=== PATIENT | male | born 1955 | race Caucasian/White ===

== ENCOUNTER → 2016-07-26 | Outpatient (CLI) | payer OTHER | END | disposition home or self-care (01) | LOC: CFH 07:02 | PROVIDERS: ATTEND Physician Assistant | DX: Z13.89 Encounter for screening for other disorder (principal); K74.60 Unspecified cirrhosis of liver | CPT/HCPCS: 76705 ==

== ENCOUNTER → 2017-01-31 | Outpatient (CLI) | payer OTHER | END | disposition home or self-care (01) | LOC: CFH 08:13 | PROVIDERS: ATTEND Physician Assistant | DX: K74.60 Unspecified cirrhosis of liver (principal) | CPT/HCPCS: 76705 ==

== ENCOUNTER → 2017-08-11 | Outpatient (CLI) | payer OTHER | LOC: CFH 06:38 | PROVIDERS: ATTEND Physician Assistant | DX: K74.60 Unspecified cirrhosis of liver (principal); R16.1 Splenomegaly, not elsewhere classified | CPT/HCPCS: 76705 ==

== ENCOUNTER → 2018-02-21 | Outpatient (CLI) | payer OTHER | END | disposition home or self-care (01) | LOC: CFH 06:56 | PROVIDERS: ATTEND Physician Assistant | DX: K74.60 Unspecified cirrhosis of liver (principal) | CPT/HCPCS: 76705 ==

== ENCOUNTER 2019-07-20 10:28 | Outpatient (CLI) | payer MEDICARE, OTHER ==
[2019-09-10] MEDS ORDERED: AMLO-150 PO (11:50)
[2019-09-10] MEDS ORDERED: LISI-167 PO (11:50)
[2019-09-10] MEDS ORDERED: FLUT9.9S NS (11:50)
[2019-09-10] MEDS ORDERED: LORA-247 PO (11:50)
[2019-09-10] MEDS ORDERED: APIX2.5T PO (11:50)
[2019-09-10] MEDS ORDERED: METO25TA2 PO (11:50)
[2019-09-10] MEDS ORDERED: MULT-658 PO (11:50)
== END 2019-07-20 23:59 | disposition home or self-care (01) ==
LOC: CVU 10:28
PROVIDERS: ATTEND Family Medicine
DX: I08.3 Combined rheumatic disorders of mitral, aortic and tricuspid valves (principal); I48.91 Unspecified atrial fibrillation; R94.31 Abnormal electrocardiogram [ECG] [EKG]
CPT/HCPCS: 93306

== ENCOUNTER 2019-09-13 09:54 | Day surgery (SDC) | payer MEDICARE, OTHER ==
[2019-09-10 11:40] VITALS: BP 120/71
[2019-09-10 12:16] LABS: BASOPHILS # (AUTO) 0.04 x10^3/uL (0-0.1); BASOPHILS % (AUTO) 1 % (0-1); EOSINOPHILS # (AUTO) 0.12 x10^3/uL (0-0.4); EOSINOPHILS % (AUTO) 2 % (1-7); LYMPHOCYTES # (AUTO) 1.83 x10^3/uL (1-3.4); LYMPHOCYTES % (AUTO) 22 % (22-44); MD NO; MEAN CORPUSCULAR HGB CONC 33.4 g/dL (33.2-36.2); MEAN CORPUSCULAR VOLUME 89.8 fL (81-97); MEAN PLATELET VOLUME 9.2 fL (7.4-10.4); MONOCYTES # (AUTO) 0.47 x10^3/uL (0.2-0.8); MONOCYTES % (AUTO) 6 % (2-9); NEUTROPHILS # (AUTO) 5.74 x10^3/uL (1.8-6.8); NEUTROPHILS % (AUTO) 70 % (42-75); PLATELET COUNT 185 x10^3/uL (130-400); RED BLOOD COUNT 5.23 x10^6/uL (4.38-5.82); RED CELL DISTRIBUTION WIDTH 13.6 % (9.4-14.8)
[2019-09-10 12:24] LABS: ANION GAP 3 mmol/L (5-15); CALCIUM 8.6 mg/dL (8.5-10.1); CHLORIDE 110 mmol/L (98-107); CREATININE 1.13 mg/dL (0.7-1.3)
[~2019-09-13] VITALS: Ht 180.3 cm; Wt 113.1 kg
[~2019-09-13 09:54] MED LIST: AMLO-150 PO; APIX2.5T PO; FLUT9.9S NS; LISI-167 PO; LORA-247 PO; METO25TA2 PO; MULT-658 PO
[2019-09-13] MEDS ORDERED: PROPOFOL 10 MG/ML, 20ML ONE (12:20)
== END 2019-09-13 13:30 | disposition home or self-care (01) ==
LOC: CACL 09:54
PROVIDERS: ATTEND Internal Medicine Cardiovascular Disease
DX: I48.91 Unspecified atrial fibrillation (principal); I48.92 Unspecified atrial flutter; I10 Essential (primary) hypertension; I42.8 Other cardiomyopathies; E66.2 Morbid (severe) obesity with alveolar hypoventilation; F12.10 Cannabis abuse, uncomplicated; Z68.1 Body mass index [BMI] 19.9 or less, adult; Z79.01 Long term (current) use of anticoagulants; Z79.899 Other long term (current) drug therapy; Z87.891 Personal history of nicotine dependence
CPT/HCPCS: 36415; 80048; 85025; 92960; 93005; U0001; J2704

== ENCOUNTER → 2019-10-19 | Outpatient (CLI) | payer MEDICARE, OTHER ==
[~2019-10-19] MED LIST changes: +OMNIPAQUE 350 MG/ML, 150 ML BOTTLE ONE
== END | disposition home or self-care (01) ==
LOC: CFH 13:42
PROVIDERS: ATTEND Internal Medicine Cardiovascular Disease
DX: I48.91 Unspecified atrial fibrillation (principal); J90 Pleural effusion, not elsewhere classified
CPT/HCPCS: 75572; 82565; Q9967

== ENCOUNTER 2019-10-22 13:45 | Outpatient (CLI) | payer MEDICARE, OTHER ==
[~2019-10-22 13:45] MED LIST changes: -OMNIPAQUE 350 MG/ML, 150 ML BOTTLE ONE
[2019-10-22 14:52] LABS: BASOPHILS # (AUTO) 0.15 x10^3/uL (0-0.1); BASOPHILS % (AUTO) 2 % (0-1); EOSINOPHILS # (AUTO) 0.07 x10^3/uL (0-0.4); EOSINOPHILS % (AUTO) 1 % (1-7); LYMPHOCYTES # (AUTO) 1.47 x10^3/uL (1-3.4); LYMPHOCYTES % (AUTO) 16 % (22-44); MD NO; MEAN CORPUSCULAR HEMOGLOBIN 29.8 pg (27.5-34.5); MEAN CORPUSCULAR HGB CONC 32.7 g/dL (33.2-36.2); MEAN CORPUSCULAR VOLUME 91.3 fL (81-97); MEAN PLATELET VOLUME 10.8 fL (7.4-10.4); MONOCYTES # (AUTO) 0.65 x10^3/uL (0.2-0.8); MONOCYTES % (AUTO) 7 % (2-9); NEUTROPHILS # (AUTO) 7.01 x10^3/uL (1.8-6.8); NEUTROPHILS % (AUTO) 75 % (42-75); PLATELET COUNT 179 x10^3/uL (130-400); RED BLOOD COUNT 5.21 x10^6/uL (4.38-5.82); RED CELL DISTRIBUTION WIDTH 14.3 % (9.4-14.8)
[2019-10-22] MEDS ORDERED: METO50TA82 PO (14:59)
[2019-10-22 15:01] LABS: ANION GAP 8 mmol/L (5-15); CALCIUM 8.9 mg/dL (8.5-10.1); CHLORIDE 106 mmol/L (98-107)
[2019-10-25] MEDS ORDERED: LISI5TAB7 PO (06:33)
== END 2019-10-22 23:59 | disposition home or self-care (01) ==
LOC: STAR 13:45
PROVIDERS: ATTEND Internal Medicine Cardiovascular Disease
DX: Z01.818 Encounter for other preprocedural examination (principal); I48.91 Unspecified atrial fibrillation; J90 Pleural effusion, not elsewhere classified; I51.7 Cardiomegaly; J98.11 Atelectasis; I10 Essential (primary) hypertension
CPT/HCPCS: 36415; 71046; 80048; 85025; U0001-CS

== ENCOUNTER → 2019-12-26 | Outpatient (CLI) | payer MEDICARE, OTHER ==
[~2019-12-26] MED LIST changes: +ACET650S21 PO/NG; +AMIO200T42 PO; +FURO80TA3 PO; +HYDR-3343 PO; +LISI5TAB7 PO; +METO50TA82 PO; +SENN-193 PO
== END | disposition home or self-care (01) ==
LOC: CFH 06:48
PROVIDERS: ATTEND Physician Assistant
DX: K82.8 Other specified diseases of gallbladder (principal); K74.60 Unspecified cirrhosis of liver
CPT/HCPCS: 76705

== ENCOUNTER → 2020-01-16 | Outpatient (CLI) | payer MEDICARE, OTHER | END | disposition home or self-care (01) | LOC: CFH 07:53 | PROVIDERS: ATTEND Internal Medicine Cardiovascular Disease | DX: I08.0 Rheumatic disorders of both mitral and aortic valves (principal); I48.91 Unspecified atrial fibrillation; I42.8 Other cardiomyopathies | CPT/HCPCS: 93306 ==

== ENCOUNTER → 2020-02-22 | Outpatient (CLI) | payer MEDICARE, OTHER ==
[~2020-02-22] MED LIST changes: +REGADENOSON 0.4 MG/5 ML SYRINGE ONE
== END | disposition home or self-care (01) ==
LOC: CFH 07:13
PROVIDERS: ATTEND Nurse Practitioner Family
DX: I11.0 Hypertensive heart disease with heart failure (principal); I50.9 Heart failure, unspecified; I48.91 Unspecified atrial fibrillation
CPT/HCPCS: 78452; 93017; A9502; J2785

== ENCOUNTER 2020-03-14 08:29 | Emergency (ER) | payer MEDICARE, OTHER ==
[~2020-03-14] VITALS: Ht 180.3 cm; Wt 101.7 kg
[~2020-03-14 08:29] MED LIST changes: -REGADENOSON 0.4 MG/5 ML SYRINGE ONE
[2020-03-14] MEDS ORDERED: SODIUM CHLORIDE FLUSH 10ML SYR IVF ONE ×2 (09:00→09:30)
[2020-03-14 09:06] LABS: BASOPHILS % (AUTO) 1 % (0-1); EOSINOPHILS % (AUTO) 2 % (1-7); LYMPHOCYTES % (AUTO) 24 % (22-44); MD NO; MEAN CORPUSCULAR HEMOGLOBIN 31.3 pg (27.5-34.5); MEAN CORPUSCULAR HGB CONC 33.5 g/dL (33.2-36.2); MEAN PLATELET VOLUME 8.4 fL (7.4-10.4); MONOCYTES % (AUTO) 7 % (2-9); NEUTROPHILS % (AUTO) 66 % (42-75); PLATELET COUNT 233 x10^3/uL (130-400); RED BLOOD COUNT 4.63 x10^6/uL (4.38-5.82); RED CELL DISTRIBUTION WIDTH 13.2 % (9.4-14.8)
[2020-03-14 09:19] LABS: ALANINE AMINOTRANSFERASE 25 U/L (12-78); ANION GAP 5 mmol/L (5-15); CALCIUM 9.2 mg/dL (8.5-10.1); CHLORIDE 106 mmol/L (98-107); CREATININE 1.98 mg/dL (0.7-1.3)
[2020-03-14 09:23] LABS: ALKALINE PHOSPHATASE 70 U/L (45-117); BILIRUBIN,TOTAL 0.6 mg/dL (0.2-1.0); TOTAL PROTEIN 8.1 g/dL (6.4-8.2); TROPONIN I < 0.015 ng/mL (0.000-0.045)
[2020-03-14] MEDS ORDERED: DILTIAZEM 5 MG/ML, 5ML IVPush STA (09:24)
[2020-03-14] MEDS ORDERED: SODIUM CHLORIDE 0.9% 1,000ML IVBOLUS ONE (09:30)
[2020-03-14] MEDS ORDERED: APIXABAN 5 MG TABLET ONE (09:51)
[2020-03-14] MEDS ORDERED: DILTIAZEM 5 MG/ML, 5ML ONE (09:51)
[2020-03-14] MEDS ORDERED: AMIODARONE 200 MG TABLET ONE (09:51)
[2020-03-14] MEDS ORDERED: APIXABAN 5 MG TABLET PO ONE (10:00)
[2020-03-14] MEDS ORDERED: AMIODARONE 200 MG TABLET PO ONE (10:00)
--- NOTE | 2020-03-14 10:13 | NUR ---
PT MEDICATED PER EMAR. CARDIZEM GIVEN VIA SLOW IV PUSH. PT TOLERATED WELL. HR WAS 160 DURING IV PUSH START, NOW HR 91. VSS. PT RESTING ON [employer] W CALL LIGHT IN REACH AND SIDE RAILS UPX2. RESP EVEN AND UNLABORED, SÁNCHEZ.
[2020-03-14 10:51] VITALS: BP 131/83
--- NOTE | 2020-03-14 11:07 | NUR ---
Patient given discharge instructions and they have confirmed that they understand the instructions. Patient ambulatory with steady gait, VSS, NADN.
== END 2020-03-14 11:09 | disposition home or self-care (01) ==
LOC: ED 10:41
DX: I48.0 Paroxysmal atrial fibrillation (principal); N18.30 Chronic kidney disease, stage 3 unspecified; R07.89 Other chest pain; R00.2 Palpitations; Z79.01 Long term (current) use of anticoagulants
CPT/HCPCS: 36415; 71045; 80053; 83735; 83880; 84484; 85025; 93005; 96361; 96374; 99285; J7030

== ENCOUNTER 2020-05-23 20:02 | Emergency (ER) | payer MEDICARE, OTHER ==
[~2020-05-23] VITALS: Ht 180.3 cm; Wt 103.0 kg
--- NOTE | 2020-05-23 20:20 | NUR ---
TASK RN: PT WC'D TO ROOM 24 W/ C/O PALPITATIONS STARTED TODAY AFTER PT WENT WALKING AND RUNNING ERRANDS. PT STATES HE FELT PALPITATIONS AND THEY HAVE NO STOPPED. HX A FIB W/ RVR. PT CURRENTLY ON ELIQUIS AND AMIODARONE. PT STATES HE TAKES HIS BLOOD THINNERS QDAY PRESCRIBED. PT STATES HX ABLATION IN OCTOBER 2019. PT DENIES ANY CP/SOB. PT RESTING ON [facility]. NADN. MONITORS APPLIED. DEMOND RAMIREZ AT BEDSIDE.
[2020-05-23] MEDS ORDERED: SODIUM CHLORIDE FLUSH 10ML SYR IVF ONE (20:30)
[2020-05-23] MEDS ORDERED: SODIUM CHLORIDE 0.9% 1,000 ML IV ONE (20:30)
[2020-05-23] MEDS ORDERED: DILTIAZEM 5 MG/ML, 5ML IV ONE (20:30)
[2020-05-23] MEDS ORDERED: DILTIAZEM 5 MG/ML, 5ML ONE (20:31)
--- NOTE | 2020-05-23 21:04 | NUR ---
TASK RN: REPORT GIVEN Memo NESS AND FRANCISCO SANTA[facility]S.
[2020-05-23 21:07] LABS: BASOPHILS % (AUTO) 1 % (0-1); EOSINOPHILS % (AUTO) 2 % (1-7); LYMPHOCYTES % (AUTO) 22 % (22-44); MEAN CORPUSCULAR HEMOGLOBIN 30.9 pg (27.5-34.5); MEAN CORPUSCULAR HGB CONC 34.2 g/dL (33.2-36.2); MEAN PLATELET VOLUME 9.3 fL (7.4-10.4); MONOCYTES % (AUTO) 9 % (2-9); NEUTROPHILS % (AUTO) 67 % (42-75); PLATELET COUNT 216 x10^3/uL (130-400); RED BLOOD COUNT 4.97 x10^6/uL (4.38-5.82); RED CELL DISTRIBUTION WIDTH 12.7 % (9.4-14.8)
[2020-05-23 21:11] LABS: MD NO
[2020-05-23 21:16] LABS: ALANINE AMINOTRANSFERASE 28 U/L (12-78); ALBUMIN 3.9 g/dL (3.4-5.0); ANION GAP 5 mmol/L (5-15); CALCIUM 8.8 mg/dL (8.5-10.1); CHLORIDE 105 mmol/L (98-107); CREATININE 2.22 mg/dL (0.7-1.3)
[2020-05-23 21:27] LABS: ALKALINE PHOSPHATASE 67 U/L (45-117); BILIRUBIN,TOTAL 0.6 mg/dL (0.2-1.0); TOTAL PROTEIN 7.5 g/dL (6.4-8.2); TROPONIN I < 0.015 ng/mL (0.000-0.045)
--- NOTE | 2020-05-23 21:29 | NUR ---
IN ROOM TO CHECK ON PT. PT UPDATED ON POC AND AWAITING THE RESULTS OF SOME OF THE LABS THAT ARE STILL PENDING. PT AGREES AND EXPRESSES NO WANTS OR NEEDS AT THIS TIME.
[2020-05-23 21:40] LABS: FREE T4 (FREE THYROXINE) 1.14 ng/dL (0.76-1.46)
[2020-05-23 21:59] VITALS: BP 103/70
== END 2020-05-23 22:04 | disposition home or self-care (01) ==
LOC: ED 22:01
DX: I48.0 Paroxysmal atrial fibrillation (principal); I12.9 Hypertensive chronic kidney disease with stage 1 through stage 4 chronic kidney disease, or unspecified chronic kidney disease; N18.9 Chronic kidney disease, unspecified; R94.31 Abnormal electrocardiogram [ECG] [EKG]
CPT/HCPCS: 36415; 71045; 80053; 83735; 83880; 84439; 84443; 84484; 85025; 93005; 96361; 96374; 99285; J7030

== ENCOUNTER 2020-05-25 16:36 | Emergency (ER) | payer MEDICARE, OTHER ==
[~2020-05-25] VITALS: Ht 180.3 cm; Wt 103.5 kg
--- NOTE | 2020-05-25 16:48 | NUR ---
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
[2020-05-25] MEDS ORDERED: DILTIAZEM 5 MG/ML, 5ML IV ONE (17:30)
[2020-05-25] MEDS ORDERED: DILTIAZEM 5 MG/ML, 5ML ONE (17:30)
[2020-05-25] MEDS ORDERED: SODIUM CHLORIDE FLUSH 10ML SYR IVF ONE (17:30)
--- NOTE | 2020-05-25 17:35 | NUR ---
ADMIN 2O MG DILT PER ORDERS. PT AFIB 120. HAD SAME EPISODE LAST WEEK AND CONVERTED TO NSR W DILT. HX OF ABLATIONS. DENIES CP OR DIZZINES. PT ON MENTAL HEALTH TECHNICIAN
--- NOTE | 2020-05-25 17:53 | NUR ---
PT APPEARS TO BE IN NSR. EKG IN PROCESS. AWARE
--- NOTE | 2020-05-25 18:56 | NUR ---
REPORT FROM FRANCISCO ALEX
[2020-05-25 19:03] VITALS: BP 120/78
--- NOTE | 2020-05-25 19:03 | NUR ---
dr neal at bedside for recheck
== END 2020-05-25 19:28 | disposition home or self-care (01) ==
LOC: ED 17:51
DX: I48.0 Paroxysmal atrial fibrillation (principal); I10 Essential (primary) hypertension; Z87.891 Personal history of nicotine dependence; Z91.048 Other nonmedicinal substance allergy status
CPT/HCPCS: 93005; 96374; 99283

== ENCOUNTER 2020-05-30 06:27 | Day surgery (SDC) | payer MEDICARE, OTHER ==
[~2020-05-30] VITALS: Ht 180.3 cm; Wt 100.5 kg
[2020-05-30] MEDS ORDERED: AMIO200T42 PO (06:56)
[2020-05-30] MEDS ORDERED: LISI5TAB7 PO (06:56)
[2020-05-30] MEDS ORDERED: FURO40TA6 PO (06:56)
[2020-05-30] MEDS ORDERED: MULT-658 PO (06:57)
[2020-05-30 07:03] VITALS: BP 121/82
[2020-05-30] MEDS ORDERED: PROPOFOL 10 MG/ML, 20ML ONE (07:19)
== END 2020-05-30 08:08 | disposition home or self-care (01) ==
LOC: CACL 06:27
PROVIDERS: ATTEND Internal Medicine Cardiovascular Disease
DX: I48.92 Unspecified atrial flutter (principal); I48.91 Unspecified atrial fibrillation; I11.0 Hypertensive heart disease with heart failure; I50.21 Acute systolic (congestive) heart failure; I42.8 Other cardiomyopathies; G47.33 Obstructive sleep apnea (adult) (pediatric); E66.3 Overweight; Z68.31 Body mass index [BMI] 31.0-31.9, adult; Z79.01 Long term (current) use of anticoagulants; Z79.899 Other long term (current) drug therapy; Z99.2 Dependence on renal dialysis
CPT/HCPCS: 92960; J2704

== ENCOUNTER → 2020-06-20 | Outpatient (CLI) | payer MEDICARE, OTHER ==
[~2020-06-20] MED LIST changes: +FURO40TA6 PO
== END | disposition home or self-care (01) ==
LOC: RAD 07:37
PROVIDERS: ATTEND Physician Assistant
DX: K74.60 Unspecified cirrhosis of liver (principal)
CPT/HCPCS: 76705

== ENCOUNTER → 2020-06-25 | Outpatient (CLI) | payer MEDICARE, OTHER | END | disposition home or self-care (01) | LOC: CVU 07:53 | PROVIDERS: ATTEND Nurse Practitioner Family | DX: I08.8 Other rheumatic multiple valve diseases (principal); I42.8 Other cardiomyopathies | CPT/HCPCS: 93306; 93356 ==

== ENCOUNTER 2020-07-09 09:01 | Day surgery (SDC) | payer MEDICARE, OTHER ==
[~2020-07-09] VITALS: Ht 180.3 cm; Wt 101.7 kg
[2020-07-09] MEDS ORDERED: METO25TA91 PO (09:36)
[2020-07-09 09:40] VITALS: BP 107/82
[2020-07-09 10:02] LABS: ANION GAP 6 mmol/L (5-15); CHLORIDE 107 mmol/L (98-107); CREATININE 1.87 mg/dL (0.7-1.3)
[2020-07-09] MEDS ORDERED: PROPOFOL 10 MG/ML, 20ML ONE (10:30)
== END 2020-07-09 11:54 | disposition home or self-care (01) ==
LOC: CACL 09:01
PROVIDERS: ATTEND Internal Medicine Cardiovascular Disease
DX: I48.19 Other persistent atrial fibrillation (principal); I48.92 Unspecified atrial flutter; I11.0 Hypertensive heart disease with heart failure; I50.21 Acute systolic (congestive) heart failure; I42.8 Other cardiomyopathies; G47.33 Obstructive sleep apnea (adult) (pediatric); E66.3 Overweight; Z68.31 Body mass index [BMI] 31.0-31.9, adult; Z79.01 Long term (current) use of anticoagulants; Z79.899 Other long term (current) drug therapy
CPT/HCPCS: 36415; 80048; 92960; 93005; J2704

== ENCOUNTER → 2020-09-01 | Outpatient (CLI) | payer MEDICARE, OTHER ==
[~2020-09-01] MED LIST changes: +METO25TA91 PO
== END | disposition home or self-care (01) ==
LOC: STAR 12:08
PROVIDERS: ATTEND Internal Medicine Cardiovascular Disease
DX: Z20.822 Contact with and (suspected) exposure to COVID-19 (principal)
CPT/HCPCS: U0003

== ENCOUNTER 2020-09-04 06:03 | Observation (INO) | payer MEDICARE, OTHER ==
[~2020-09-04] VITALS: Ht 180.3 cm; Wt 101.4 kg
[2020-09-04] MEDS ORDERED: SODIUM CHLORIDE 0.9% 1,000 ML IV SCH (06:30)
[2020-09-04 06:31] VITALS: BP 135/75
[2020-09-04 07:12] LABS: BASOPHILS % (AUTO) 1 % (0-1); EOSINOPHILS % (AUTO) 4 % (1-7); LYMPHOCYTES % (AUTO) 24 % (22-44); MD NO; MEAN CORPUSCULAR HEMOGLOBIN 31.1 pg (27.5-34.5); MEAN CORPUSCULAR HGB CONC 34.4 g/dL (33.2-36.2); MEAN PLATELET VOLUME 8.6 fL (7.4-10.4); MONOCYTES % (AUTO) 8 % (2-9); NEUTROPHILS % (AUTO) 63 % (42-75); PLATELET COUNT 193 x10^3/uL (130-400); RED BLOOD COUNT 4.77 x10^6/uL (4.38-5.82); RED CELL DISTRIBUTION WIDTH 13.5 % (9.4-14.8)
[2020-09-04 07:20] LABS: ANION GAP 6 mmol/L (5-15); CALCIUM 8.9 mg/dL (8.5-10.1); CHLORIDE 106 mmol/L (98-107); CREATININE 1.83 mg/dL (0.7-1.3)
[2020-09-04] MEDS ORDERED: MIDAZOLAM 1 MG/ML, 2ML ONE (07:37)
[2020-09-04] MEDS ORDERED: FENTANYL PF 250 MCG/5ML ONE (07:37)
[2020-09-04] MEDS ORDERED: ROCURONIUM 10MG/ML,5ML ONE (07:38)
[2020-09-04] MEDS ORDERED: PROPOFOL 10 MG/ML, 20ML ONE (07:38)
[2020-09-04] MEDS ORDERED: HEPARIN 1,000 UNITS/ML, 10ML ONE ×3 (08:55→09:40)
[2020-09-04] MEDS ORDERED: DEXAMETHASONE 4 MG/ML, 1ML ONE ×2 (08:55)
[2020-09-04] MEDS ORDERED: GLYCOPYRROLATE 0.2MG/1ML, 5ML ONE (09:45)
[2020-09-04] MEDS ORDERED: NEOSTIGMINE 1 MG/ML, 10ML ONE (09:45)
[2020-09-04] MEDS ORDERED: ONDANSETRON 2MG/ML, 2ML ONE (09:47)
[2020-09-04] MEDS ORDERED: APIXABAN 2.5 MG TABLET PO SCH (10:00)
[2020-09-04] MEDS ORDERED: ZOLPIDEM 5MG TABLET PO PRN (10:00)
[2020-09-04] MEDS ORDERED: SENNA/DOCUSATE TABLET PO PRN (10:00)
[2020-09-04] MEDS ORDERED: ACETAMINOPHEN 650 MG/20.3 ML UDC PO/NG PRN (10:00)
[2020-09-04] MEDS ORDERED: ACETAMINOPHEN 325 MG TABLET PO PRN ×2 (10:00→10:30)
[2020-09-04] MEDS ORDERED: APIXABAN 5 MG TABLET PO SCH ×2 (10:00→21:00)
[2020-09-04] MEDS ORDERED: OXYcodone 5 MG/5 ML ORAL.SOL UDC PO PRN (10:30)
[2020-09-04] MEDS ORDERED: FENTANYL PF 100 MCG/2ML IV PRN (10:30)
[2020-09-04] MEDS ORDERED: LABETALOL 5MG/ML, 20ML IV PRN (10:30)
[2020-09-04] MEDS ORDERED: MIDAZOLAM 1 MG/ML, 2ML IV PRN (10:30)
[2020-09-04] MEDS ORDERED: DIAZEPAM 5 MG/ML, 2ML IVPush PRN (10:30)
[2020-09-04] MEDS ORDERED: HYDROmorphone 1 MG/ML, 1ML INJ IVPush PRN (10:30)
[2020-09-04] MEDS ORDERED: EPHEDRINE 50 MG/ML, 1ML IVPush PRN (10:30)
[2020-09-04] MEDS ORDERED: ALBUTEROL SULFATE 2.5 MG/3 ML NPPB PRN (10:30)
[2020-09-04] MEDS ORDERED: DIPHENHYDRAMINE 50 MG/ML, 1ML IVPush PRN ×2 (10:30)
[2020-09-04] MEDS ORDERED: PROMETHAZINE 12.5 MG SUPP PR PRN (10:30)
[2020-09-04] MEDS ORDERED: PROMETHAZINE 25 MG/ML, 1ML IVPush PRN (10:30)
[2020-09-04] MEDS ORDERED: hydrALAzine 20 MG/ML, 1ML IV PRN (10:30)
[2020-09-04] MEDS ORDERED: ONDANSETRON 2MG/ML, 2ML IVPush PRN (10:30)
[2020-09-04] MEDS ORDERED: MEPERIDINE/PF 25MG/0.5ML IVPush PRN (10:30)
[2020-09-04] MEDS ORDERED: APIXABAN 5 MG TABLET ONE (10:49)
[2020-09-04 11:50] VITALS: BP 117/69
[2020-09-04 14:25] VITALS: BP 110/67
[2020-09-04 19:08] VITALS: BP 117/75
[2020-09-05 01:03] VITALS: BP 126/70
[2020-09-05 07:04] VITALS: BP 118/72
[2020-09-05] MEDS ORDERED: LISINOPRIL 5 MG TABLET PO SCH (09:00)
[2020-09-05] MEDS ORDERED: AMIODARONE 200 MG TABLET PO SCH (09:00)
[2020-09-05] MEDS ORDERED: LORATADINE 10 MG TABLET PO SCH (09:00)
[2020-09-05] MEDS ORDERED: FUROSEMIDE 20 MG TABLET PO SCH (09:00)
[2020-09-05] MEDS ORDERED: APIXABAN 5 MG TABLET PO SCH (09:00)
[2020-09-05] MEDS ORDERED: MULTIVITAMIN 1 TABLET PO SCH (09:00)
[2020-09-05] MEDS ORDERED: POTA20TA14 PO (09:54)
[2020-09-05] MEDS ORDERED: POTASSIUM CHLORIDE 20 MEQ TAB.ER.PRT PO ONE (10:00)
== END 2020-09-05 11:12 | disposition home or self-care (01) ==
LOC: CACL 06:03 → ORIP 10:00 → 5SO 11:47 → DCLOUNGE 09-05 10:57
PROVIDERS: ADMIT Internal Medicine Cardiovascular Disease; ATTEND Internal Medicine Cardiovascular Disease
DX: I48.4 Atypical atrial flutter (principal); I48.91 Unspecified atrial fibrillation; I10 Essential (primary) hypertension; G47.33 Obstructive sleep apnea (adult) (pediatric); Z79.01 Long term (current) use of anticoagulants; Z79.899 Other long term (current) drug therapy
CPT/HCPCS: 36415; 71046; 80048; 85025; 85347; 93306; 93312; 93321; 93325; 93462; 93613; 93653; 93655; 93662; C1730; C1732; C1759; C1766; C1893; C1894; G0378; J1100; J1644; J2250; J2405; J2704; J2710; J3010